=== PATIENT | female | born 1955 | race Hispanic/Latino ===

== ENCOUNTER 2017-05-21 20:24 | Emergency (ER) | payer MEDICARE ==
[2017-05-21] MEDS ORDERED: ONDANSETRON HCL 4 MG/2 ML VIAL ONE (20:49)
[2017-05-21] MEDS ORDERED: SODIUM CHLORIDE 0.9% 1000ML 1,000 ML IV ONE (20:50)
[2017-05-21 21:25] LABS: BASOPHILS % (AUTO) 0.4 % (0.0-5.0); EOSINOPHILS % (AUTO) 0.1 % (0.0-8.0); HEMATOCRIT 35.2 % (36-48); MEAN CORPUSCULAR HEMOGLOBIN 30.3 pg (27.0-33.0); MEAN CORPUSCULAR HGB CONC 34.2 g/dL (32.0-36.0); MEAN CORPUSCULAR VOLUME 88.4 fL (79-99); NEUTROPHILS % (AUTO) 84.5 % (40.0-77.0); PLATELET COUNT (AUTO) 133 K/uL (130-400); RED BLOOD CELL COUNT(AUTO) 3.98 MIL/uL (4.00-5.50); RED CELL DISTRIBUTION WIDTH 12.4 % (11.0-15.5); WHITE BLOOD COUNT (AUTO) 8.3 K/uL (4.8-10.8)
[2017-05-21 21:34] LABS: CARBON DIOXIDE 29 mmol/L (21-32); CHLORIDE 95 mmol/L (101-111); CREATININE 1.2 mg/dL (0.5-1.5); GLOMERULAR FILTR. RATE CALC 48 mL/min (>60); GLUCOSE,RANDOM 178 mg/dL (70-105); POTASSIUM 3.8 mmol/L (3.5-5.1); SODIUM SERUM 132 mmol/L (136-145); UREA NITROGEN, BLOOD 16 mg/dL (7-18)
[2017-05-21 21:36] LABS: INR 1.13 (0.85-1.15); PROTHROMBIN TIME 11.8 SEC (9.6-11.6)
[2017-05-21 21:49] LABS: ALANINE AMINOTRANSFERASE 20 U/L (12-78); ALBUMIN 3.2 g/dL (3.5-5.0); AMYLASE 40 U/L (25-115); ASPARTATE AMINOTRANSFERASE 19 U/L (10-37); BILIRUBIN,TOTAL 1.3 mg/dL (0.2-1.0); CREATINE KINASE MB < 0.5 ng/mL (0.5-3.6); CREATINE KINASE, TOTAL 62 U/L (21-232); LIPASE 83 U/L (114-286); TOTAL PROTEIN, SERUM 7.2 g/dL (6.0-8.3)
[2017-05-21 23:07] LABS: APPEARANCE,URINE Clear (CLEAR); BILIRUBIN,URINE Negative (NEGATIVE); COLOR,URINE Yellow (YELLOW); GLUCOSE, URINE (UA) Negative (NEGATIVE); KETONES,URINE 40 mg/dL (NEGATIVE); LEUKOCYTE ESTERASE ,URINE Moderate (NEGATIVE); NITRATE,URINE Negative (NEGATIVE); OCCULT BLOOD,URINE Negative (NEGATIVE); PH,URINE 7.5 (5.0-8.0); PROTEIN,URINE POS 1+ (NEGATIVE)
[2017-05-21 23:16] LABS: BACTERIA,URINE Few /HPF (None Seen); MUCUS,URINE Moderate LPF (None Seen); RBC,URINE None Seen /HPF (0-1); SQUAMOUS EPITHELIAL CELL,UR Moderate /LPF (0-2)
[2017-05-21 23:17] LABS: AMORPHOUS SEDIMENT,UR Few /LPF (None Seen)
[2017-05-21] MEDS ORDERED: CEFTRIAXONE SODIUM 1 GM ONE (23:30)
== END 2017-05-22 00:08 | disposition home or self-care (01) ==
LOC: EDH 20:24
DX: N39.0 Urinary tract infection, site not specified (principal); E11.9 Type 2 diabetes mellitus without complications; E78.5 Hyperlipidemia, unspecified; R79.1 Abnormal coagulation profile; R11.2 Nausea with vomiting, unspecified; Z79.4 Long term (current) use of insulin; Z90.49 Acquired absence of other specified parts of digestive tract; Z79.899 Other long term (current) drug therapy
CPT/HCPCS: 36415; 71010; 80053; 81001; 82150; 82550; 82553; 83605; 83690; 84484; 85025; 85610; 85730; 87040 ×2; 87088; 87186; 87804 ×2; 93005; 96361; 96374; 96375; 99285; J0696; J2405; J7030

== ENCOUNTER 2017-05-24 16:22 | Emergency (ER) | payer MEDICARE ==
[2017-05-24 16:51] LABS: APPEARANCE,URINE Clear (CLEAR); BILIRUBIN,URINE Negative (NEGATIVE); COLOR,URINE Yellow (YELLOW); GLUCOSE, URINE (UA) >=1000 mg/dL (NEGATIVE); KETONES,URINE Negative (NEGATIVE); LEUKOCYTE ESTERASE ,URINE Negative (NEGATIVE); NITRATE,URINE Negative (NEGATIVE); OCCULT BLOOD,URINE Negative (NEGATIVE); PROTEIN,URINE Negative (NEGATIVE); UROBILINOGEN,URINE 0.2 mg/dL (0.2-1.0)
[2017-05-24 16:54] LABS: BASOPHILS % (AUTO) 0.3 % (0.0-5.0); EOSINOPHILS % (AUTO) 0.2 % (0.0-8.0); LYMPHOCYTES % (AUTO) 12.1 % (21.0-51.0); MEAN CORPUSCULAR HEMOGLOBIN 30.4 pg (27.0-33.0); MEAN CORPUSCULAR HGB CONC 34.9 g/dL (32.0-36.0); NEUTROPHILS % (AUTO) 80.4 % (40.0-77.0); PLATELET COUNT (AUTO) 211 K/uL (130-400); RED BLOOD CELL COUNT(AUTO) 4.03 MIL/uL (4.00-5.50); RED CELL DISTRIBUTION WIDTH 12.4 % (11.0-15.5); WHITE BLOOD COUNT (AUTO) 7.1 K/uL (4.8-10.8)
[2017-05-24 17:06] LABS: CREATININE 1.4 mg/dL (0.5-1.5); POTASSIUM 3.8 mmol/L (3.5-5.1)
[2017-05-24 17:31] LABS: BACTERIA,URINE Rare /HPF (None Seen); RBC,URINE None Seen /HPF (0-1); SQUAMOUS EPITHELIAL CELL,UR 0-2 /LPF (0-2); WBC,URINE 0-1 /HPF (0-1)
[2017-05-24] MEDS ORDERED: SODIUM CHLORIDE 0.9% 1000ML 2,000 ML IV ONE (17:42)
[2017-05-24] MEDS ORDERED: CEFTRIAXONE SODIUM 1 GM ONE (17:43)
[2017-05-24] MEDS ORDERED: INSULIN HUMULIN R 100 UNIT/ML 3ML ONE ×2 (17:44→19:13)
[2017-05-24] MEDS ORDERED: SODIUM CHLORIDE 0.9% 50 ML IV ONE (17:48)
== END 2017-05-24 20:07 | disposition home or self-care (01) ==
LOC: EDH 16:22
DX: E11.65 Type 2 diabetes mellitus with hyperglycemia (principal); E86.0 Dehydration; E78.5 Hyperlipidemia, unspecified; Z94.0 Kidney transplant status; Z79.4 Long term (current) use of insulin
CPT/HCPCS: 36415; 71010; 80048; 81001; 82948 ×2; 84484; 85025; 96361; 96374; 96375; 96376; 99285; J0696; J1815 ×2; J7030

== ENCOUNTER 2017-09-11 18:49 | Emergency (ER) | payer MEDICARE ==
[2017-09-11 19:42] LABS: BASOPHILS % (AUTO) 0.5 % (0.0-5.0); EOSINOPHILS % (AUTO) 1.5 % (0.0-8.0); HEMATOCRIT 38.4 % (36-48); MEAN CORPUSCULAR HEMOGLOBIN 30.1 pg (27.0-33.0); MEAN CORPUSCULAR HGB CONC 34.6 g/dL (32.0-36.0); MEAN CORPUSCULAR VOLUME 87.1 fL (79-99); MONOCYTES % (AUTO) 8.1 % (3.0-13.0); NEUTROPHILS % (AUTO) 71.9 % (40.0-77.0); PLATELET COUNT (AUTO) 181 K/uL (130-400); RED BLOOD CELL COUNT(AUTO) 4.41 MIL/uL (4.00-5.50); RED CELL DISTRIBUTION WIDTH 12.9 % (11.0-15.5); WHITE BLOOD COUNT (AUTO) 11.8 K/uL (4.8-10.8)
[2017-09-11] MEDS ORDERED: SODIUM CHLORIDE 0.9% 1000ML 1,000 ML IV ONE (19:42)
[2017-09-11] MEDS ORDERED: MORPHINE SULFATE 4 MG/1ML SYG ONE (19:42)
[2017-09-11] MEDS ORDERED: ONDANSETRON HCL MDV 20ML 2 MG/ML VIAL ONE (19:42)
[2017-09-11 20:12] LABS: APPEARANCE,URINE Clear (CLEAR); BILIRUBIN,URINE Negative (NEGATIVE); COLOR,URINE Yellow (YELLOW); GLUCOSE, URINE (UA) Negative (NEGATIVE); KETONES,URINE Negative (NEGATIVE); LEUKOCYTE ESTERASE ,URINE Negative (NEGATIVE); NITRATE,URINE Negative (NEGATIVE); OCCULT BLOOD,URINE Negative (NEGATIVE); PROTEIN,URINE Trace (NEGATIVE)
[2017-09-11 20:15] LABS: CREATININE 1.1 mg/dL (0.5-1.5); POTASSIUM 3.9 mmol/L (3.5-5.1)
[2017-09-11 20:20] LABS: ALBUMIN 3.6 g/dL (3.5-5.0); BILIRUBIN,TOTAL 0.7 mg/dL (0.2-1.0); TOTAL PROTEIN, SERUM 7.3 g/dL (6.0-8.3)
[2017-09-11 20:27] LABS: BACTERIA,URINE Rare /HPF (None Seen); RBC,URINE None Seen /HPF (0-1); SQUAMOUS EPITHELIAL CELL,UR 0-2 /HPF (0-2); WBC,URINE 0-1 /HPF (0-1)
[2017-09-11] MEDS ORDERED: METRONIDAZOLE 500 MG TABLET ONE (23:25)
[2017-09-11] MEDS ORDERED: LEVOFLOXACIN 500 MG TABLET ONE (23:26)
== END 2017-09-11 23:39 | disposition home or self-care (01) ==
LOC: EDH 18:49
DX: K57.92 Diverticulitis of intestine, part unspecified, without perforation or abscess without bleeding (principal); E11.9 Type 2 diabetes mellitus without complications; E78.5 Hyperlipidemia, unspecified; Z90.49 Acquired absence of other specified parts of digestive tract; Z90.710 Acquired absence of both cervix and uterus; Z94.0 Kidney transplant status
CPT/HCPCS: 36415; 74176; 80053; 81001; 82550; 83690; 84484; 85025; 93005; 96361; 96374; 96375; 99285; J2270; J7030

== ENCOUNTER 2017-11-02 17:13 | Emergency (ER) | payer MEDICARE | END 2017-11-02 18:25 | disposition home or self-care (01) | LOC: EDH 17:13 | DX: S01.81XA Laceration without foreign body of other part of head, initial encounter (principal); E11.9 Type 2 diabetes mellitus without complications; E78.5 Hyperlipidemia, unspecified; Z79.4 Long term (current) use of insulin; W01.0XXA Fall on same level from slipping, tripping and stumbling without subsequent striking against object, initial encounter; Y93.89 Activity, other specified; Y92.098 Other place in other non-institutional residence as the place of occurrence of the external cause; Y99.8 Other external cause status | CPT/HCPCS: 12011 ==

== ENCOUNTER 2018-07-31 10:18 | Inpatient (IN) | payer MEDICARE | END 2018-08-02 13:30 | disposition home or self-care (01) | LOC: EDH 10:18 → EDHIP 12:45 → 3AH 17:28 | DX: N39.0 Urinary tract infection, site not specified (principal); N17.9 Acute kidney failure, unspecified; N18.9 Chronic kidney disease, unspecified ==

== ENCOUNTER 2018-12-20 12:35 | Inpatient (IN) | payer MEDICARE ==
[~2018-12-20] VITALS: Ht 165.1 cm; Wt 70.7 kg
[~2018-12-20 12:35] MED LIST: ASPI-555 PO; ATOR40TA69 PO; FAMO40TA7 PO; INSU100V12 SQ; LACT10SO9 PO; LEVO500T89 PO; LEVO5TAB13 PO; MYCO500T PO; MYCO500T5 PO; PRED5TAB PO; PROM25TA7 PO; SITA100T12 PO; TACR1CAP10 PO; TACR1CAP18 PO; TRAZ-185 PO; TYL3 PO
[2018-12-20] MEDS ORDERED: SODIUM CHLORIDE 0.9% 1000ML 1,000 ML IV ONE (12:59)
[2018-12-20 13:02] LABS: APPEARANCE,URINE TURBID (CLEAR); BASOPHILS % (AUTO) 0.2 % (0.0-5.0); BILIRUBIN,URINE NEGATIVE (NEGATIVE); COLOR,URINE YELLOW (YELLOW); EOSINOPHILS % (AUTO) 0.2 % (0.0-8.0); GLUCOSE, URINE (UA) NEGATIVE (NEGATIVE); HEMATOCRIT 36.2 % (36-48); KETONES,URINE 40 mg/dL (NEGATIVE); LEUKOCYTE ESTERASE ,URINE LARGE (NEGATIVE); LYMPHOCYTES % (AUTO) 11.1 % (21.0-51.0); MEAN CORPUSCULAR HEMOGLOBIN 30.4 pg (27.0-33.0); MEAN CORPUSCULAR VOLUME 89.4 fL (79-99); MONOCYTES % (AUTO) 11.3 % (3.0-13.0); NEUTROPHILS % (AUTO) 77.2 % (40.0-77.0); NITRATE,URINE POSITIVE (NEGATIVE); OCCULT BLOOD,URINE SMALL (NEGATIVE); PLATELET COUNT (AUTO) 189 K/uL (130-400); PROTEIN,URINE 100 mg/dL (NEGATIVE); RED BLOOD CELL COUNT(AUTO) 4.05 MIL/uL (4.00-5.50); RED CELL DISTRIBUTION WIDTH 12.7 % (11.0-15.5); UROBILINOGEN,URINE 0.2 mg/dL (0.2-1.0); WHITE BLOOD COUNT (AUTO) 11.6 K/uL (4.8-10.8)
[2018-12-20 13:04] LABS: BACTERIA,URINE Many /HPF (None Seen); RBC,URINE 0-1 /HPF (0-1); SQUAMOUS EPITHELIAL CELL,UR Rare /HPF (0-2); WBC,URINE >100 /HPF (0-1)
[2018-12-20 13:13] LABS: CREATININE 1.4 mg/dL (0.5-1.5); POTASSIUM 3.7 mmol/L (3.5-5.1)
[2018-12-20 13:16] LABS: INR 1.02 (0.85-1.15); PARTIAL THROMBOPLASTIN TIME 33.1 SEC (26.3-35.5); PROTHROMBIN TIME 10.7 SEC (9.6-11.6)
[2018-12-20 13:17] LABS: ALBUMIN 3.4 g/dL (3.5-5.0); BILIRUBIN,DIRECT 0.3 mg/dL (0.0-0.3); TOTAL PROTEIN, SERUM 7.6 g/dL (6.0-8.3)
[2018-12-20] MEDS ORDERED: SODIUM CHLORIDE 0.9% 100 ML IV ONE (13:20)
[2018-12-20] MEDS ORDERED: CEFTRIAXONE SODIUM 1 GM ONE (13:20)
[2018-12-20] MEDS ORDERED: ACETAMINOPHEN 325 MG TAB ONE (13:48)
[2018-12-20] MEDS ORDERED: HYDRALAZINE HCL 20 MG/ML VIAL IV PRN (15:45)
[2018-12-20] MEDS ORDERED: ACETAMINOPHEN 325 MG TAB PO PRN ×2 (15:45)
[2018-12-20] MEDS ORDERED: ONDANSETRON HCL 4 MG/2 ML VIAL IV PRN (15:45)
[2018-12-20 16:16] LABS: HEMOGLOBIN A1C 7.4 % (4.0-6.0)
[2018-12-20] MEDS: INSULIN HUMULIN R 100 UNIT/ML 3ML SQ SCH ×2 (16:30→21:00)
[2018-12-20 16:56] VITALS: BP 114/58
[2018-12-20] MEDS: SODIUM CHLORIDE 0.9% 1000ML 1,000 ML IV SCH (17:28)
--- NOTE | 2018-12-20 17:45 | NUR ---
DR ECKERT NOTIFIED OF NEW CONSULT BY PHONE ORDERS RECEIVED FOR LEVOFLOXACIN 500 IV TIME ONE
[2018-12-20] MEDS ORDERED: LEVOFLOXACIN 500 MG/D5W 100 ML 100 ML IV SCH (18:00)
[2018-12-20 20:45] VITALS: BP 115/53
[2018-12-20] MEDS: FAMOTIDINE/PF 20 MG/2 ML VIAL IV SCH (20:54)
[2018-12-20] MEDS: ATORVASTATIN CALCIUM 40 MG TABLET PO SCH (20:55)
[2018-12-20] MEDS: MYCOPHENOLATE MOFETIL 250 MG CAPSULE PO SCH (20:55)
[2018-12-20] MEDS: TACROLIMUS 1 MG CAPSULE PO SCH (20:55)
[2018-12-20] MEDS: TRAZODONE HCL 50 MG TAB PO SCH (20:55)
[2018-12-20] MEDS: ACETAMINOPHEN-CODEINE 300/30MG TAB PO SCH (20:56)
[2018-12-20] MEDS: ZOSYN 3.375GM+NS 50ML 50 ML IV SCH (21:09)
[2018-12-20 23:54] VITALS: BP 110/58
[2018-12-21] MEDS: SODIUM CHLORIDE 0.9% 1000ML 1,000 ML IV SCH ×3 (01:48→20:48)
[2018-12-21 04:33] VITALS: BP 112/55
[2018-12-21] MEDS: ZOSYN 3.375GM+NS 50ML 50 ML IV SCH ×3 (05:33→20:47)
[2018-12-21] MEDS: INSULIN HUMULIN R 100 UNIT/ML 3ML SQ SCH ×4 (05:47→20:58)
[2018-12-21 08:00] VITALS: BP 104/50
[2018-12-21] MEDS ORDERED: PREDNISONE 5 MG TABLET PO SCH (09:00)
[2018-12-21] MEDS: ASPIRIN 81MG TAB.CHEW PO SCH (09:00)
[2018-12-21] MEDS: ACETAMINOPHEN-CODEINE 300/30MG TAB PO SCH ×2 (09:00→14:00)
[2018-12-21] MEDS: TACROLIMUS 1 MG CAPSULE PO SCH ×2 (09:36→20:48)
[2018-12-21] MEDS: FAMOTIDINE/PF 20 MG/2 ML VIAL IV SCH ×2 (09:36→20:48)
[2018-12-21] MEDS: MYCOPHENOLATE MOFETIL 250 MG CAPSULE PO SCH ×2 (09:36→20:48)
[2018-12-21] MEDS: ENOXAPARIN SODIUM 40 MG/0.4 ML SYRINGE SQ SCH (09:36)
[2018-12-21] MEDS: CETIRIZINE HCL 5 MG TABLET PO SCH (09:36)
[2018-12-21 12:00] VITALS: BP 119/61
[2018-12-21] MEDS: LEVOFLOXACIN 500 MG/D5W 100 ML 100 ML IV SCH ×2 (13:00→15:33)
[2018-12-21 16:00] VITALS: BP 132/72
--- NOTE | 2018-12-21 16:50 | NUR ---
D/C PLAN CM spoke to pt regarding d/c planning. Pt is ind. and lives alone. Has provider about 4 hrs/day. States she has wk at home but does not use. Plan to home. CM to f/u. Addendum: 12/21/18 at 1655 by ANTHONY SOLORIO CM Amended: Links added.
[2018-12-21 20:00] VITALS: BP 115/72
[2018-12-21] MEDS: ATORVASTATIN CALCIUM 40 MG TABLET PO SCH (20:48)
[2018-12-21] MEDS: TRAZODONE HCL 50 MG TAB PO SCH (20:49)
[2018-12-21] MEDS ORDERED: ACETAMINOPHEN-CODEINE 300/30MG TAB PO PRN (21:15)
[2018-12-22] VITALS: BP 151/76
[2018-12-22 04:00] VITALS: BP 123/70
[2018-12-22 05:15] LABS: BASOPHILS % (AUTO) 0.3 % (0.0-5.0); EOSINOPHILS % (AUTO) 1.4 % (0.0-8.0); HEMATOCRIT 30.5 % (36-48); LYMPHOCYTES % (AUTO) 26.3 % (21.0-51.0); MEAN CORPUSCULAR HEMOGLOBIN 30.9 pg (27.0-33.0); MEAN CORPUSCULAR HGB CONC 34.3 g/dL (32.0-36.0); MONOCYTES % (AUTO) 8.5 % (3.0-13.0); NEUTROPHILS % (AUTO) 63.5 % (40.0-77.0); PLATELET COUNT (AUTO) 168 K/uL (130-400); RED BLOOD CELL COUNT(AUTO) 3.39 MIL/uL (4.00-5.50); RED CELL DISTRIBUTION WIDTH 12.6 % (11.0-15.5); WHITE BLOOD COUNT (AUTO) 6.3 K/uL (4.8-10.8)
[2018-12-22] MEDS: ZOSYN 3.375GM+NS 50ML 50 ML IV SCH ×2 (05:20→12:51)
[2018-12-22] MEDS: INSULIN HUMULIN R 100 UNIT/ML 3ML SQ SCH ×2 (05:59→11:30)
[2018-12-22 06:11] LABS: CREATININE 1.1 mg/dL (0.5-1.5); CRP QUANTITATIVE 152.2 mg/L (0.00-9.0); POTASSIUM 3.5 mmol/L (3.5-5.1)
[2018-12-22 06:21] LABS: ERYTHROCYTE SEDIMENTATION RATE 36 MM/HR (0-30)
[2018-12-22 08:00] VITALS: BP 125/64
[2018-12-22] MEDS: ASPIRIN 81MG TAB.CHEW PO SCH (08:52)
[2018-12-22] MEDS: CETIRIZINE HCL 5 MG TABLET PO SCH (08:52)
[2018-12-22] MEDS: MYCOPHENOLATE MOFETIL 250 MG CAPSULE PO SCH (08:52)
[2018-12-22] MEDS: TACROLIMUS 1 MG CAPSULE PO SCH (08:52)
[2018-12-22] MEDS: FAMOTIDINE/PF 20 MG/2 ML VIAL IV SCH (08:53)
[2018-12-22] MEDS: ENOXAPARIN SODIUM 40 MG/0.4 ML SYRINGE SQ SCH (08:53)
[2018-12-22] MEDS ORDERED: LEVO500T2 PO (11:27)
[2018-12-22] MEDS: LEVOFLOXACIN 500 MG/D5W 100 ML 100 ML IV SCH (12:42)
--- NOTE | 2018-12-22 16:35 | NUR ---
DISCHARGE INSTRUCTIONS GIVEN . ALL QUESTIONS ANSWERED . INSTRUCTED PATIENT TO HAVE PRESCRIPTION FILLED FOR LEVAQUIN. IV DISCONTINUED WITH INNER CANNULA INTACT.
[2018-12-23] MEDS ORDERED: PREDNISONE 5 MG TABLET PO SCH (09:00)
== END 2018-12-22 15:40 | disposition home or self-care (01) | DRG 698 ==
LOC: EDH 12:35 → EDHIP 15:35 → 3AH 16:34
PROVIDERS: ADMIT Internal Medicine; ATTEND Internal Medicine
DX: T86.13 Kidney transplant infection (principal); A41.9 Sepsis, unspecified organism; N17.9 Acute kidney failure, unspecified; E87.1 Hypo-osmolality and hyponatremia; N12 Tubulo-interstitial nephritis, not specified as acute or chronic; Q61.3 Polycystic kidney, unspecified; Y83.0 Surgical operation with transplant of whole organ as the cause of abnormal reaction of the patient, or of later complication, without mention of misadventure at the time of the procedure; E86.1 Hypovolemia; E11.9 Type 2 diabetes mellitus without complications; E78.00 Pure hypercholesterolemia, unspecified; E78.5 Hyperlipidemia, unspecified; I10 Essential (primary) hypertension; B96.1 Klebsiella pneumoniae [K. pneumoniae] as the cause of diseases classified elsewhere; K57.30 Diverticulosis of large intestine without perforation or abscess without bleeding
CPT/HCPCS: 36415; 74176; 80048; 80076; 81001; 82550; 82948; 83036; 83605; 83690; 84484; 85025; 85610; 85651; 85730; 86140; 87040; 87077; 87088; 87186; 87804; G0378; J0696; J1650; J1815; J1956; J2543; J3490; J7030; J7507; J7512; J7517

== ENCOUNTER 2021-01-17 21:38 | Inpatient (IN) | payer MEDICARE ==
[~2021-01-17] VITALS: Ht 165.1 cm; Wt 69.9 kg
[~2021-01-17 21:38] MED LIST changes: -ASPI-555 PO; +ASPI-556 PO; -FAMO40TA7 PO; -INSU100V12 SQ; -LACT10SO9 PO; +LEVO500T2 PO; -LEVO500T89 PO
[2021-01-17] MEDS ORDERED: ACETAMINOPHEN 500 MG TABLET PO ONE (23:00)
[2021-01-17] MEDS ORDERED: ACETAMINOPHEN 500 MG TABLET ONE (23:20)
[2021-01-17 23:33] LABS: BASOPHILS % (AUTO) 0.1 % (0.0-5.0); EOSINOPHILS % (AUTO) 0.1 % (0.0-8.0); HEMATOCRIT 37.5 % (36-48); LYMPHOCYTES % (AUTO) 6.9 % (21.0-51.0); MEAN CORPUSCULAR HEMOGLOBIN 30.2 pg (27.0-33.0); MEAN CORPUSCULAR HGB CONC 33.9 g/dL (32.0-36.0); MEAN CORPUSCULAR VOLUME 89.3 fL (79-99); MONOCYTES % (AUTO) 9.1 % (3.0-13.0); NEUTROPHILS % (AUTO) 83.7 % (40.0-77.0); PLATELET COUNT (AUTO) 118 K/uL (130-400); RED CELL DISTRIBUTION WIDTH 12.1 % (11.0-15.5); WHITE BLOOD COUNT (AUTO) 6.7 K/uL (4.8-10.8)
[2021-01-17 23:43] VITALS: BP 131/67
[2021-01-17 23:43] LABS: INR 1.09 (0.85-1.15); PROTHROMBIN TIME 11.8 SEC (9.6-11.6)
[2021-01-17 23:44] LABS: PARTIAL THROMBOPLASTIN TIME 27.2 SEC (26.3-35.5)
[2021-01-17 23:49] LABS: APPEARANCE,URINE Clear (CLEAR); BILIRUBIN,URINE Negative (NEGATIVE); COLOR,URINE Yellow (YELLOW); GLUCOSE, URINE (UA) 500 mg/dL (NEGATIVE); KETONES,URINE 40 mg/dL (NEGATIVE); LEUKOCYTE ESTERASE ,URINE Moderate (NEGATIVE); NITRATE,URINE Negative (NEGATIVE); OCCULT BLOOD,URINE Trace (NEGATIVE); PH,URINE 6.5 (5.0-8.0); PROTEIN,URINE POS 2+ mg/dL (NEGATIVE)
[2021-01-17 23:55] LABS: B-TYPE NATRIURETIC PEPTIDE 27 pg/mL (0-100)
[2021-01-17 23:58] LABS: BACTERIA,URINE Few /HPF (None Seen); SQUAMOUS EPITHELIAL CELL,UR 0-2 /HPF (0-2)
[2021-01-17 23:59] LABS: CREATININE 1.2 mg/dL (0.5-1.5); POTASSIUM 3.9 mmol/L (3.5-5.1)
[2021-01-18] VITALS (8 sets, daily range): BP systolic 104–155; BP diastolic 53–76
[2021-01-18] MEDS ORDERED: ZOSYN 3.375GM +NS 50ML IV ONE
[2021-01-18] MEDS ORDERED: PIP/TAZ ZOSYN 3.375G 3.375 GM VIAL IVPB ONE
[2021-01-18 00:04] LABS: ALBUMIN 3.5 g/dL (3.5-5.0); TOTAL PROTEIN, SERUM 7.1 g/dL (6.0-8.3)
[2021-01-18] MEDS ORDERED: 0.9%NACL 50ML 50 ML IV ONE (01:35)
[2021-01-18] MEDS ORDERED: ZOSYN 3.375GM+NS 50ML 50 ML IV ONE (01:35)
[2021-01-18] MEDS ORDERED: ONDANSETRON 4MG INJ IV PRN (02:00)
[2021-01-18] MEDS ORDERED: GLUCAGON 1MG KIT 1 MG ML IM PRN (02:00)
[2021-01-18] MEDS ORDERED: ACETAMINOPHEN 325 MG TAB PO PRN (02:00)
[2021-01-18] MEDS ORDERED: DEXTROSE 50%-WATER 50 ML DISP.SYRIN IV PRN (02:00)
[2021-01-18] MEDS ORDERED: NITROGLYCERIN 0.4 MG SL TAB SL PRN (02:00)
[2021-01-18 02:12] LABS: HEMOGLOBIN A1C 7.8 % (4.0-6.0)
[2021-01-18] MEDS: LEVOFLOXACIN 500 MG/D5W 100 ML 100 ML IV SCH (03:38)
[2021-01-18] MEDS ORDERED: ZOSYN 3.375GM+NS 50ML 50 ML IV SCH (05:00)
[2021-01-18] MEDS: INSULIN HUMULIN R 100 UNIT/ML 3ML SQ SCH ×4 (08:05→21:39)
[2021-01-18] MEDS: FAMOTIDINE 20MG TAB PO SCH ×2 (09:58→21:21)
[2021-01-18 15:24] LABS: APPEARANCE,URINE Clear (CLEAR); BILIRUBIN,URINE Negative (NEGATIVE); COLOR,URINE Yellow (YELLOW); GLUCOSE, URINE (UA) TRACE mg/dL (NEGATIVE); KETONES,URINE Trace mg/dL (NEGATIVE); LEUKOCYTE ESTERASE ,URINE Negative (NEGATIVE); NITRATE,URINE Negative (NEGATIVE); OCCULT BLOOD,URINE Negative (NEGATIVE); PROTEIN,URINE POS 2+ mg/dL (NEGATIVE)
[2021-01-18] MEDS ORDERED: TACR1CAP10 PO (15:35)
[2021-01-18] MEDS ORDERED: MYCO500V2 IV (15:37)
[2021-01-18] MEDS ORDERED: ATOR40TA71 PO (15:38)
[2021-01-18] MEDS ORDERED: TRAZ-185 PO (15:39)
[2021-01-18] MEDS ORDERED: INSU100V12 SQ (15:40)
[2021-01-18 15:51] LABS: BACTERIA,URINE Few /HPF (None Seen); RBC,URINE 0-1 /HPF (0-1); WBC,URINE 0-1 /HPF (0-1)
[2021-01-18 15:52] LABS: AMORPHOUS SEDIMENT,UR Rare /LPF (None Seen); MUCUS,URINE Rare LPF (None Seen); SQUAMOUS EPITHELIAL CELL,UR Rare /HPF (0-2)
[2021-01-18] MEDS: ACETAMINOPHEN 325 MG TAB PO PRN (16:01)
[2021-01-18] MEDS: MYCOPHENOLATE MOFETIL 250 MG CAPSULE PO SCH (23:00)
[2021-01-18] MEDS: TACROLIMUS 1 MG CAPSULE PO SCH (23:00)
[2021-01-19] MEDS: LEVOFLOXACIN 500 MG/D5W 100 ML 100 ML IV SCH (00:51)
[2021-01-19] MEDS ORDERED: AEC81 PO (01:21)
[2021-01-19] MEDS ORDERED: CYCL10TA7 PO (01:21)
[2021-01-19] MEDS ORDERED: MELA10TA PO (01:21)
[2021-01-19] MEDS ORDERED: DOCU-116 PO (01:21)
[2021-01-19] MEDS ORDERED: CHOL200016 PO (01:21)
[2021-01-19] MEDS ORDERED: FAMO40TA75 PO (01:21)
[2021-01-19] MEDS: ACETAMINOPHEN 325 MG TAB PO PRN ×2 (02:52→20:49)
[2021-01-19 03:47] VITALS: BP 120/52
[2021-01-19 05:44] LABS: BASOPHILS % (AUTO) 0.4 % (0.0-5.0); EOSINOPHILS % (AUTO) 1.2 % (0.0-8.0); HEMATOCRIT 34.7 % (36-48); LYMPHOCYTES % (AUTO) 23.6 % (21.0-51.0); MEAN CORPUSCULAR HEMOGLOBIN 29.9 pg (27.0-33.0); MEAN CORPUSCULAR VOLUME 88.1 fL (79-99); MONOCYTES % (AUTO) 15.1 % (3.0-13.0); NEUTROPHILS % (AUTO) 59.5 % (40.0-77.0); PLATELET COUNT (AUTO) 128 K/uL (130-400); RED BLOOD CELL COUNT(AUTO) 3.94 MIL/uL (4.00-5.50); RED CELL DISTRIBUTION WIDTH 11.9 % (11.0-15.5); WHITE BLOOD COUNT (AUTO) 5.7 K/uL (4.8-10.8)
[2021-01-19 06:12] LABS: BILIRUBIN,TOTAL 0.6 mg/dL (0.2-1.0); CREATININE 1.1 mg/dL (0.5-1.5); MAGNESIUM 1.7 mg/dL (1.80-2.40); POTASSIUM 3.5 mmol/L (3.5-5.1); TOTAL PROTEIN, SERUM 6.6 g/dL (6.0-8.3)
[2021-01-19] MEDS: INSULIN HUMULIN R 100 UNIT/ML 3ML SQ SCH ×4 (07:30→20:45)
[2021-01-19 07:53] VITALS: BP 116/59
[2021-01-19] MEDS: FAMOTIDINE 20MG TAB PO SCH ×2 (08:42→20:37)
[2021-01-19] MEDS: MYCOPHENOLATE MOFETIL 250 MG CAPSULE PO SCH ×2 (08:42→20:37)
[2021-01-19] MEDS: TACROLIMUS 1 MG CAPSULE PO SCH ×2 (08:43→20:37)
[2021-01-19 11:03] VITALS: BP 108/60
[2021-01-19 16:52] VITALS: BP 119/59
[2021-01-19 20:21] VITALS: BP 135/72
[2021-01-19] MEDS: ATORVASTATIN 40 MG TABLET PO SCH (20:37)
[2021-01-19] MEDS: DOCUSATE SODIUM 100 MG CAP PO SCH (20:37)
[2021-01-19] MEDS ORDERED: MYCOPHENOLATE MOFETIL 500 MG PO SCH (21:00)
[2021-01-19 23:54] VITALS: BP 128/67
[2021-01-20] MEDS: LEVOFLOXACIN 500 MG/D5W 100 ML 100 ML IV SCH (01:43)
[2021-01-20 04:00] VITALS: BP 127/64
[2021-01-20] MEDS: INSULIN HUMULIN R 100 UNIT/ML 3ML SQ SCH ×4 (06:32→21:33)
[2021-01-20 07:21] VITALS: BP 137/73
[2021-01-20] MEDS: ASPIRIN 81 MG EC TAB PO SCH (08:44)
[2021-01-20] MEDS: MYCOPHENOLATE MOFETIL 250 MG CAPSULE PO SCH ×2 (08:44→21:31)
[2021-01-20] MEDS: TACROLIMUS 1 MG CAPSULE PO SCH ×2 (08:44→21:31)
[2021-01-20] MEDS: PREDNISONE 5 MG TABLET PO SCH (08:44)
[2021-01-20] MEDS: FAMOTIDINE 20MG TAB PO SCH ×2 (08:44→21:31)
[2021-01-20] MEDS: NON-FORMULARY MEDICATION 1 EACH (Cholecalciferol (Vitamin D3) (Vitamin D3) 50 MCG) PO SCH (09:00)
[2021-01-20 11:38] VITALS: BP 123/60
[2021-01-20 15:40] VITALS: BP_SYST 146; BP_SYST 147; BP_DIAS 70; BP_DIAS 71
[2021-01-20 19:59] VITALS: BP 131/61
[2021-01-20] MEDS: ATORVASTATIN 40 MG TABLET PO SCH (21:31)
[2021-01-20] MEDS: DOCUSATE SODIUM 100 MG CAP PO SCH (21:31)
[2021-01-20 23:34] VITALS: BP 133/69
[2021-01-21] MEDS: LEVOFLOXACIN 500 MG/D5W 100 ML 100 ML IV SCH (02:20)
[2021-01-21 03:43] VITALS: BP 134/66
[2021-01-21] MEDS: INSULIN HUMULIN R 100 UNIT/ML 3ML SQ SCH ×3 (05:47→16:30)
[2021-01-21 07:46] VITALS: BP 126/67
[2021-01-21 07:58] LABS: ALBUMIN 3.3 g/dL (3.5-5.0); BILIRUBIN,TOTAL 0.4 mg/dL (0.2-1.0); CREATININE 1.1 mg/dL (0.5-1.5); POTASSIUM 4.1 mmol/L (3.5-5.1); TOTAL PROTEIN, SERUM 7.2 g/dL (6.0-8.3)
[2021-01-21] MEDS: NON-FORMULARY MEDICATION 1 EACH (Cholecalciferol (Vitamin D3) (Vitamin D3) 50 MCG) PO SCH (09:00)
[2021-01-21] MEDS: FAMOTIDINE 20MG TAB PO SCH (09:25)
[2021-01-21] MEDS: MYCOPHENOLATE MOFETIL 250 MG CAPSULE PO SCH (09:26)
[2021-01-21] MEDS: ASPIRIN 81 MG EC TAB PO SCH (09:29)
[2021-01-21] MEDS: TACROLIMUS 1 MG CAPSULE PO SCH (09:29)
[2021-01-21] MEDS: PREDNISONE 5 MG TABLET PO SCH (09:29)
[2021-01-21 10:45] VITALS: BP 134/68
[2021-01-21] MEDS ORDERED: LEVO750T46 PO (15:02)
[2021-01-21 16:22] VITALS: BP 168/84
== END 2021-01-21 17:45 | disposition home or self-care (01) | DRG 872 ==
LOC: EDH 21:38 → EDHIP 01-18 01:40 → 3CH 01-18 15:34
PROVIDERS: ADMIT Internal Medicine; ATTEND Internal Medicine
DX: A41.9 Sepsis, unspecified organism (principal); E87.1 Hypo-osmolality and hyponatremia; D84.9 Immunodeficiency, unspecified; I12.0 Hypertensive chronic kidney disease with stage 5 chronic kidney disease or end stage renal disease; N12 Tubulo-interstitial nephritis, not specified as acute or chronic; N30.00 Acute cystitis without hematuria; E46 Unspecified protein-calorie malnutrition; Z94.0 Kidney transplant status; E78.5 Hyperlipidemia, unspecified; G89.29 Other chronic pain; E11.22 Type 2 diabetes mellitus with diabetic chronic kidney disease; E11.65 Type 2 diabetes mellitus with hyperglycemia; Z83.3 Family history of diabetes mellitus; Z68.25 Body mass index [BMI] 25.0-25.9, adult; Z20.822 Contact with and (suspected) exposure to COVID-19; Z87.898 Personal history of other specified conditions
CPT/HCPCS: 36415; 71045; 80053; 81001; 82550; 82948; 83036; 83605; 83735; 83880; 84100; 84145; 84484; 85025; 85610; 85730; 87040; 87088; 87635; 87804; 93005; C9803; G0378; J1815; J1956; J2405; J2543; J7507; J7512; J7517

== ENCOUNTER 2021-06-23 11:53 | Emergency (ER) | payer MEDICARE ==
[~2021-06-23] VITALS: Ht 165.1 cm; Wt 70.3 kg
[~2021-06-23 11:53] MED LIST changes: +AEC81 PO; -ASPI-556 PO; -ATOR40TA69 PO; +ATOR40TA71 PO; +CHOL200016 PO; +CYCL-309 PO; +DOCU-116 PO; +FAMO40TA75 PO; +INSU100V12 SQ; -LEVO500T2 PO; -LEVO5TAB13 PO; +LEVO750T46 PO; +MELA10TA PO; -MYCO500T5 PO; -PROM25TA7 PO; -TACR1CAP10 PO
[2021-06-23] MEDS ORDERED: MECLIZINE HCL 25 MG TABLET PO SCH (12:30)
[2021-06-23 12:41] LABS: APPEARANCE,URINE Clear (CLEAR); BILIRUBIN,URINE Negative (NEGATIVE); COLOR,URINE Dark Yellow (YELLOW); GLUCOSE, URINE (UA) Negative (NEGATIVE); KETONES,URINE Negative (NEGATIVE); LEUKOCYTE ESTERASE ,URINE Trace (NEGATIVE); NITRATE,URINE Negative (NEGATIVE); OCCULT BLOOD,URINE Negative (NEGATIVE); PROTEIN,URINE POS 1+ mg/dL (NEGATIVE)
[2021-06-23 12:45] LABS: BACTERIA,URINE Rare /HPF (None Seen); RBC,URINE 0-1 /HPF (0-1); SQUAMOUS EPITHELIAL CELL,UR Rare /HPF (0-2); WBC,URINE 0-1 /HPF (0-1)
[2021-06-23] MEDS ORDERED: ACETAMINOPHEN 500 MG TABLET PO SCH (13:00)
[2021-06-23 13:10] LABS: INFLUENZA TYPE A NEGATIVE FOR TYPE A (NEG); INFLUENZA TYPE B NEGATIVE FOR TYPE B (NEG)
[2021-06-23] MEDS ORDERED: 0.9%NACL 1000ML 1,000 ML IV ONE (13:30)
[2021-06-23 13:41] LABS: BASOPHILS % (AUTO) 0.3 % (0.0-5.0); EOSINOPHILS % (AUTO) 0.1 % (0.0-8.0); HEMATOCRIT 40.2 % (36-48); LYMPHOCYTES % (AUTO) 3.6 % (21.0-51.0); MEAN CORPUSCULAR HEMOGLOBIN 30.2 pg (27.0-33.0); MEAN CORPUSCULAR HGB CONC 33.8 g/dL (32.0-36.0); MEAN CORPUSCULAR VOLUME 89.3 fL (79-99); MONOCYTES % (AUTO) 4.3 % (3.0-13.0); NEUTROPHILS % (AUTO) 91.2 % (40.0-77.0); PLATELET COUNT (AUTO) 166 K/uL (130-400); RED CELL DISTRIBUTION WIDTH 12.2 % (11.0-15.5); WHITE BLOOD COUNT (AUTO) 10.9 K/uL (4.8-10.8)
[2021-06-23 13:47] LABS: CREATININE 1.2 mg/dL (0.5-1.5); POTASSIUM 3.2 mmol/L (3.5-5.1)
[2021-06-23 13:54] LABS: BILIRUBIN,TOTAL 0.7 mg/dL (0.2-1.0); TOTAL PROTEIN, SERUM 7.8 g/dL (6.0-8.3)
[2021-06-23] MEDS ORDERED: POTASSIUM BICARB/CIT AC 25 MEQ TABLET.EFF PO ONE (14:30)
[2021-06-23] MEDS ORDERED: MECL-226 PO (14:46)
[2021-06-23 15:09] VITALS: BP 96/59
[2021-06-24] MEDS ORDERED: DICY20TA2 PO (14:39)
[2021-06-24] MEDS ORDERED: ONDA4TAB10 PO (14:39)
[2021-06-24] MEDS ORDERED: METR375C2 PO (14:39)
== END 2021-06-23 15:33 | disposition home or self-care (01) ==
LOC: EDH 11:53
DX: B34.9 Viral infection, unspecified (principal); I95.1 Orthostatic hypotension; Z20.822 Contact with and (suspected) exposure to COVID-19; E11.9 Type 2 diabetes mellitus without complications; I10 Essential (primary) hypertension; Z79.4 Long term (current) use of insulin; Z79.52 Long term (current) use of systemic steroids; Z79.82 Long term (current) use of aspirin; Z79.899 Other long term (current) drug therapy; Z90.49 Acquired absence of other specified parts of digestive tract
CPT/HCPCS: 36415; 80053; 81001; 85025; 87635; 87804 ×2; 96360; 96361; 99284; C9803; J7030

== ENCOUNTER 2021-06-24 14:14 | Emergency (ER) | payer MEDICARE ==
[~2021-06-24] VITALS: Ht 165.1 cm; Wt 70.3 kg
[~2021-06-24 14:14] MED LIST changes: +MECL-226 PO
[2021-06-24] MEDS ORDERED: DICYCLOMINE 20MG (10MG/ML) AMP IM SCH (14:31)
[2021-06-24] MEDS ORDERED: METR375C2 PO (14:39)
[2021-06-24] MEDS ORDERED: ONDA4TAB10 PO (14:39)
[2021-06-24] MEDS ORDERED: DICY20TA2 PO (14:39)
[2021-06-24] MEDS ORDERED: ONDANSETRON ODT 4MG TAB SL SCH (15:00)
[2021-06-24] MEDS ORDERED: LEVOFLOXACIN 500 MG TABLET PO SCH (15:00)
[2021-06-24] MEDS ORDERED: METRONIDAZOLE 500 MG TABLET PO SCH (15:00)
[2021-06-24 15:01] LABS: BASOPHILS % (AUTO) 0.2 % (0.0-5.0); EOSINOPHILS % (AUTO) 2.7 % (0.0-8.0); LYMPHOCYTES % (AUTO) 3.4 % (21.0-51.0); MEAN CORPUSCULAR HEMOGLOBIN 30.7 pg (27.0-33.0); MEAN CORPUSCULAR HGB CONC 34.4 g/dL (32.0-36.0); MEAN CORPUSCULAR VOLUME 89.1 fL (79-99); MONOCYTES % (AUTO) 4.7 % (3.0-13.0); NEUTROPHILS % (AUTO) 88.4 % (40.0-77.0); PLATELET COUNT (AUTO) 120 K/uL (130-400); RED BLOOD CELL COUNT(AUTO) 4.04 MIL/uL (4.00-5.50); RED CELL DISTRIBUTION WIDTH 12.4 % (11.0-15.5)
[2021-06-24 15:08] LABS: CREATININE 1.5 mg/dL (0.5-1.5); POTASSIUM 3.8 mmol/L (3.5-5.1)
[2021-06-24 15:12] LABS: ALBUMIN 3.2 g/dL (3.5-5.0); BILIRUBIN,TOTAL 1.6 mg/dL (0.2-1.0); TOTAL PROTEIN, SERUM 6.9 g/dL (6.0-8.3)
[2021-06-24 15:47] VITALS: BP 106/56
== END 2021-06-24 16:08 | disposition home or self-care (01) ==
LOC: EDH 14:14
DX: K52.9 Noninfective gastroenteritis and colitis, unspecified (principal); E11.9 Type 2 diabetes mellitus without complications; I10 Essential (primary) hypertension; Z79.4 Long term (current) use of insulin; Z79.52 Long term (current) use of systemic steroids; Z79.82 Long term (current) use of aspirin; Z79.899 Other long term (current) drug therapy; Z90.49 Acquired absence of other specified parts of digestive tract
CPT/HCPCS: 36415; 80053; 85025; 96372; 99284; J0500

== ENCOUNTER 2021-10-22 15:47 | Emergency (ER) | payer MEDICARE ==
[~2021-10-22] VITALS: Ht 165.1 cm; Wt 64.4 kg
[~2021-10-22 15:47] MED LIST changes: -CHOL200016 PO; +CHOL200052 PO; +DICY20TA2 PO; +METR375C2 PO; +ONDA4TAB10 PO
[2021-10-22] MEDS ORDERED: IBUPROFEN 600 MG TABLET PO ONE (17:00)
[2021-10-22] MEDS ORDERED: ACET-66 PO (17:37)
[2021-10-22 17:50] VITALS: BP 136/86
== END 2021-10-22 17:52 | disposition home or self-care (01) ==
LOC: EDH 15:47
DX: S52.121A Displaced fracture of head of right radius, initial encounter for closed fracture (principal); M79.602 Pain in left arm; I10 Essential (primary) hypertension; E11.9 Type 2 diabetes mellitus without complications; E78.5 Hyperlipidemia, unspecified; Z79.899 Other long term (current) drug therapy; Z79.4 Long term (current) use of insulin; Z79.52 Long term (current) use of systemic steroids; Z79.82 Long term (current) use of aspirin; Z90.49 Acquired absence of other specified parts of digestive tract; Z94.0 Kidney transplant status; W01.0XXA Fall on same level from slipping, tripping and stumbling without subsequent striking against object, initial encounter; Y93.89 Activity, other specified; Y92.89 Other specified places as the place of occurrence of the external cause; Y99.8 Other external cause status
CPT/HCPCS: 29105; 73060; 73080; 73090

== ENCOUNTER 2021-10-25 16:00 | Inpatient (IN) | payer MEDICARE ==
[~2021-10-25] VITALS: Ht 165.1 cm; Wt 65.1 kg
[~2021-10-25 16:00] MED LIST changes: +ACET-66 PO
[2021-10-25] MEDS ORDERED: 0.9%NACL 1000ML 1,000 ML IV SCH (16:30)
[2021-10-25] MEDS ORDERED: PROMETHAZINE HCL 25 MG/ML 1ML AMPULE IM ONE (16:30)
[2021-10-25 16:51] LABS: BASOPHILS % (AUTO) 0.1 % (0.0-5.0); LYMPHOCYTES % (AUTO) 3.6 % (21.0-51.0); MEAN CORPUSCULAR HEMOGLOBIN 29.1 pg (27.0-33.0); MEAN CORPUSCULAR HGB CONC 33.3 g/dL (32.0-36.0); MEAN CORPUSCULAR VOLUME 87.4 fL (79-99); MONOCYTES % (AUTO) 6.6 % (3.0-13.0); NEUTROPHILS % (AUTO) 89.3 % (40.0-77.0); PLATELET COUNT (AUTO) 202 K/uL (130-400); RED BLOOD CELL COUNT(AUTO) 4.46 MIL/uL (4.00-5.50); RED CELL DISTRIBUTION WIDTH 12.4 % (11.0-15.5); WHITE BLOOD COUNT (AUTO) 14.6 K/uL (4.8-10.8)
[2021-10-25 17:02] LABS: APPEARANCE,URINE Cloudy (CLEAR); BILIRUBIN,URINE Negative (NEGATIVE); COLOR,URINE Yellow (YELLOW); GLUCOSE, URINE (UA) 250 mg/dL (NEGATIVE); KETONES,URINE >=80 mg/dL (NEGATIVE); LEUKOCYTE ESTERASE ,URINE Moderate (NEGATIVE); NITRATE,URINE Negative (NEGATIVE); OCCULT BLOOD,URINE Trace (NEGATIVE); PH,URINE 5.5 (5.0-8.0); PROTEIN,URINE POS 2+ mg/dL (NEGATIVE); UROBILINOGEN,URINE 0.2 mg/dL (0.2-1.0)
[2021-10-25 17:09] LABS: ALBUMIN 3.2 g/dL (3.5-5.0); BILIRUBIN,TOTAL 1.2 mg/dL (0.2-1.0); POTASSIUM 4.3 mmol/L (3.5-5.1); TOTAL PROTEIN, SERUM 7.7 g/dL (6.0-8.3)
[2021-10-25] MEDS ORDERED: CEFTRIAXONE 1G VIAL IVP ONE ×2 (17:30→18:00)
[2021-10-25 17:32] LABS: BACTERIA,URINE Many /HPF (None Seen); RBC,URINE 0-1 /HPF (0-1)
[2021-10-25 17:43] LABS: CREATININE 1.6 mg/dL (0.5-1.5)
[2021-10-25] MEDS ORDERED: INSULIN HUMULIN R 100 UNIT/ML 3ML IV ONE (18:00)
[2021-10-25] MEDS ORDERED: LORAZEPAM 2 MG/ML 1 ML VIAL IVP ONE (18:30)
[2021-10-25] MEDS ORDERED: CEFTRIAXONE 1G VIAL IV SCH (19:00)
[2021-10-25] MEDS ORDERED: ONDANSETRON 4MG INJ IV PRN (19:00)
[2021-10-25] MEDS ORDERED: ACETAMINOPHEN 325 MG TAB PO PRN ×2 (19:00)
[2021-10-25] MEDS ORDERED: MORPHINE 2 MG SYG IV PRN (19:00)
[2021-10-25] MEDS ORDERED: AMLO2.5T4 PO (20:41)
[2021-10-25] MEDS: 0.9%NACL 1000ML 1,000 ML IV SCH (20:54)
[2021-10-25] MEDS: FAMOTIDINE 20MG VIAL IV SCH (21:00)
[2021-10-25 23:30] VITALS: BP 142/51
[2021-10-26] VITALS (7 sets, daily range): BP systolic 116–141; BP diastolic 55–78
[2021-10-26 05:17] LABS: BASOPHILS % (AUTO) 0.2 % (0.0-5.0); EOSINOPHILS % (AUTO) 0.4 % (0.0-8.0); LYMPHOCYTES % (AUTO) 10.8 % (21.0-51.0); MEAN CORPUSCULAR HGB CONC 32.2 g/dL (32.0-36.0); MEAN CORPUSCULAR VOLUME 90.1 fL (79-99); MONOCYTES % (AUTO) 8.4 % (3.0-13.0); NEUTROPHILS % (AUTO) 79.8 % (40.0-77.0); PLATELET COUNT (AUTO) 129 K/uL (130-400); RED BLOOD CELL COUNT(AUTO) 3.55 MIL/uL (4.00-5.50); RED CELL DISTRIBUTION WIDTH 12.4 % (11.0-15.5); WHITE BLOOD COUNT (AUTO) 8.4 K/uL (4.8-10.8)
[2021-10-26 05:38] LABS: ALBUMIN 2.5 g/dL (3.5-5.0); BILIRUBIN,TOTAL 0.5 mg/dL (0.2-1.0); CREATININE 1.1 mg/dL (0.5-1.5); POTASSIUM 3.8 mmol/L (3.5-5.1); TOTAL PROTEIN, SERUM 6.2 g/dL (6.0-8.3)
[2021-10-26] MEDS: INSULIN HUMULIN R 100 UNIT/ML 3ML SQ SCH ×2 (06:39→11:30)
[2021-10-26 06:59] LABS: ERYTHROCYTE SEDIMENTATION RATE 40 MM/HR (0-30)
[2021-10-26 07:13] LABS: HEMOGLOBIN A1C 9.1 % (4.0-6.0)
[2021-10-26] MEDS: 0.9%NACL 1000ML 1,000 ML IV SCH ×3 (07:43→21:19)
[2021-10-26] MEDS: INSULIN LISPRO 100 UNIT/ML 3ML SQ SCH ×6 (08:00→21:11)
[2021-10-26] MEDS: FAMOTIDINE 20MG VIAL IV SCH (09:00)
[2021-10-26] MEDS: TRAZODONE HCL 50 MG TAB PO SCH (09:00)
[2021-10-26] MEDS ORDERED: ZOSYN 3.375GM +NS 50ML IV SCH (10:00)
[2021-10-26] MEDS: TACROLIMUS 1 MG CAPSULE PO SCH ×2 (10:16→21:08)
[2021-10-26] MEDS: MYCOPHENOLATE MOFETIL 250 MG CAPSULE PO SCH ×2 (10:16→21:09)
[2021-10-26] MEDS: AMLODIPINE 2.5 MG TAB PO SCH (10:17)
[2021-10-26] MEDS: PREDNISONE 5 MG TABLET PO SCH (10:17)
[2021-10-26] MEDS ORDERED: PRED5TAB2 PO (11:13)
[2021-10-26] MEDS ORDERED: CHOL200074 PO (11:13)
[2021-10-26] MEDS ORDERED: BISA5TAB12 PO (11:13)
[2021-10-26] MEDS ORDERED: SITA100T12 PO (11:13)
[2021-10-26] MEDS ORDERED: PSYL0.4C2 PO (11:13)
[2021-10-26] MEDS: CEFTRIAXONE 1G VIAL IVP SCH (15:58)
[2021-10-26] MEDS ORDERED: INSULIN GLARGINE 100 UNITS/ML 10 ML VIAL SQ SCH (21:00)
[2021-10-27 04:00] VITALS: BP 161/85
[2021-10-27 05:03] LABS: BASOPHILS % (AUTO) 0.1 % (0.0-5.0); EOSINOPHILS % (AUTO) 1.3 % (0.0-8.0); HEMATOCRIT 30.5 % (36-48); LYMPHOCYTES % (AUTO) 14.1 % (21.0-51.0); MEAN CORPUSCULAR HEMOGLOBIN 28.5 pg (27.0-33.0); MEAN CORPUSCULAR HGB CONC 32.8 g/dL (32.0-36.0); MEAN CORPUSCULAR VOLUME 86.9 fL (79-99); PLATELET COUNT (AUTO) 164 K/uL (130-400); RED BLOOD CELL COUNT(AUTO) 3.51 MIL/uL (4.00-5.50); RED CELL DISTRIBUTION WIDTH 12.5 % (11.0-15.5); WHITE BLOOD COUNT (AUTO) 9.6 K/uL (4.8-10.8)
[2021-10-27 05:14] LABS: CREATININE 0.9 mg/dL (0.5-1.5); POTASSIUM 3.6 mmol/L (3.5-5.1)
[2021-10-27] MEDS: INSULIN LISPRO 100 UNIT/ML 3ML SQ SCH ×6 (06:31→17:11)
[2021-10-27 08:00] VITALS: BP 151/59
[2021-10-27] MEDS: FAMOTIDINE 20MG VIAL IV SCH (09:00)
[2021-10-27] MEDS ORDERED: ***HM*** (Cholecalciferol (Vitamin D3) (Vitamin D3) 50 MCG) PO SCH (09:00)
[2021-10-27] MEDS: TRAZODONE HCL 50 MG TAB PO SCH (09:00)
[2021-10-27] MEDS: MYCOPHENOLATE MOFETIL 250 MG CAPSULE PO SCH (10:59)
[2021-10-27] MEDS: AMLODIPINE 2.5 MG TAB PO SCH (10:59)
[2021-10-27] MEDS: PREDNISONE 5 MG TABLET PO SCH (10:59)
[2021-10-27] MEDS: TACROLIMUS 1 MG CAPSULE PO SCH (10:59)
[2021-10-27] MEDS: 0.9%NACL 1000ML 1,000 ML IV SCH (11:00)
[2021-10-27 12:00] VITALS: BP 160/78
[2021-10-27 15:00] VITALS: BP 167/65
[2021-10-27] MEDS ORDERED: CEPH500T PO (15:27)
[2021-10-27] MEDS: CEFTRIAXONE 1G VIAL IVP SCH (15:35)
== END 2021-10-27 19:05 | disposition home or self-care (01) | DRG 872 ==
LOC: EDH 16:00 → OBSVTOIN 18:45 → EDHIP 18:45 → INTOOBSV 18:45 → 3CH 23:29
PROVIDERS: ADMIT Internal Medicine; ATTEND Internal Medicine
DX: A41.9 Sepsis, unspecified organism (principal); N39.0 Urinary tract infection, site not specified; E87.1 Hypo-osmolality and hyponatremia; N17.9 Acute kidney failure, unspecified; T86.19 Other complication of kidney transplant; E11.65 Type 2 diabetes mellitus with hyperglycemia; Z20.822 Contact with and (suspected) exposure to COVID-19; Z87.442 Personal history of urinary calculi; Z90.49 Acquired absence of other specified parts of digestive tract; E11.22 Type 2 diabetes mellitus with diabetic chronic kidney disease; E78.5 Hyperlipidemia, unspecified; Y83.0 Surgical operation with transplant of whole organ as the cause of abnormal reaction of the patient, or of later complication, without mention of misadventure at the time of the procedure; N18.30 Chronic kidney disease, stage 3 unspecified; G89.29 Other chronic pain; M54.9 Dorsalgia, unspecified; B96.1 Klebsiella pneumoniae [K. pneumoniae] as the cause of diseases classified elsewhere; E86.1 Hypovolemia
CPT/HCPCS: 36415; 74176; 76705; 80048; 80053; 81001; 82948; 83036; 83690; 84145; 84484; 85025; 85651; 87077; 87088; 87186; 87324; 87635; 87804; C9803; G0378; J0696; J1815; J2060; J2405; J2543; J2550; J7030; J7507; J7512; J7517

== ENCOUNTER 2021-11-16 17:25 | Inpatient (IN) | payer MEDICARE ==
[~2021-11-16] VITALS: Ht 165.1 cm; Wt 66.4 kg
[~2021-11-16 17:25] MED LIST changes: -ACET-66 PO; -AEC81 PO; +AMLO2.5T4 PO; +BISA5TAB12 PO; +CEPH500T PO; +CHOL200074 PO; -CYCL-309 PO; -DICY20TA2 PO; -DOCU-116 PO; -FAMO40TA75 PO; -INSU100V12 SQ; -LEVO750T46 PO; -MECL-226 PO; -MELA10TA PO; -METR375C2 PO; -ONDA4TAB10 PO; -PRED5TAB PO; +PRED5TAB2 PO; +PSYL0.4C2 PO; -TYL3 PO
[2021-11-16 18:01] LABS: BASOPHILS % (AUTO) 0.1 % (0.0-5.0); HEMATOCRIT 34.6 % (36-48); LYMPHOCYTES % (AUTO) 5.2 % (21.0-51.0); MEAN CORPUSCULAR HEMOGLOBIN 29.1 pg (27.0-33.0); MEAN CORPUSCULAR HGB CONC 33.2 g/dL (32.0-36.0); MEAN CORPUSCULAR VOLUME 87.6 fL (79-99); MONOCYTES % (AUTO) 6.1 % (3.0-13.0); NEUTROPHILS % (AUTO) 88.2 % (40.0-77.0); PLATELET COUNT (AUTO) 162 K/uL (130-400); RED BLOOD CELL COUNT(AUTO) 3.95 MIL/uL (4.00-5.50)
[2021-11-16 18:09] LABS: CREATININE 1.4 mg/dL (0.5-1.5); POTASSIUM 4.1 mmol/L (3.5-5.1)
[2021-11-16 18:15] LABS: ALBUMIN 3.3 g/dL (3.5-5.0); TOTAL PROTEIN, SERUM 7.5 g/dL (6.0-8.3)
[2021-11-16 20:19] LABS: APPEARANCE,URINE CLOUDY (CLEAR); BILIRUBIN,URINE NEGATIVE (NEGATIVE); COLOR,URINE YELLOW (YELLOW); GLUCOSE, URINE (UA) 100 mg/dL (NEGATIVE); KETONES,URINE 15 mg/dL (NEGATIVE); LEUKOCYTE ESTERASE ,URINE MODERATE (NEGATIVE); NITRATE,URINE NEGATIVE (NEGATIVE); OCCULT BLOOD,URINE TRACE-LYSED (NEGATIVE); PROTEIN,URINE TRACE mg/dL (NEGATIVE); UROBILINOGEN,URINE 0.2 mg/dL (0.2-1.0)
[2021-11-16 20:27] LABS: BACTERIA,URINE Moderate /HPF (None Seen); SQUAMOUS EPITHELIAL CELL,UR Rare /HPF (0-2); WBC,URINE 26-50 /HPF (0-1)
[2021-11-16 20:28] LABS: TRANSITIONAL EPI CELLS,URINE Rare /HPF (None Seen)
[2021-11-16] MEDS ORDERED: CEFTRIAXONE 1G VIAL IM ONE (21:00)
[2021-11-16] MEDS ORDERED: IOHEXOL-350 75 ML VIAL IV ONE (22:49)
[2021-11-16] MEDS ORDERED: ASPIRIN 81 MG EC TAB PO ONE (23:00)
[2021-11-16 23:47] LABS: THYROID STIMULATING HORMONE 0.56 uIU/mL (0.36-3.74)
[2021-11-16] MEDS: 0.9%NACL 1000ML 1,000 ML IV SCH (23:51)
[2021-11-17] MEDS ORDERED: ONDANSETRON 4MG INJ IV PRN (03:00)
[2021-11-17] MEDS: 0.9%NACL 1000ML 1,000 ML IV SCH ×4 (03:00→16:20)
[2021-11-17] MEDS: ZOSYN 3.375GM+NS 50ML 50 ML IV SCH ×2 (03:00→15:13)
[2021-11-17 07:19] LABS: HEMOGLOBIN A1C 8.9 % (4.0-6.0)
[2021-11-17] MEDS: INSULIN HUMULIN R 100 UNIT/ML 3ML SQ SCH ×4 (07:53→20:35)
[2021-11-17] MEDS: FAMOTIDINE 20MG TAB PO SCH (08:54)
[2021-11-17 09:01] LABS: AMPHET/METH SCREEN,URINE NEGATIVE (NEGATIVE); BARBITURATE SCREEN, URINE NEGATIVE (NEGATIVE); BENZODIAZEPINES SCREEN,URINE NEGATIVE (NEGATIVE); CANNABINOID SCREEN,URINE NEGATIVE (NEGATIVE); COCAINE SCREEN,URINE NEGATIVE (NEGATIVE); OPIATE SCREEN,URINE NEGATIVE (NEGATIVE); PHENCYCLIDINE SCREEN,URINE NEGATIVE (NEGATIVE)
[2021-11-17] MEDS ORDERED: PREDNISONE 5 MG TABLET PO SCH (10:00)
[2021-11-17 10:20] LABS: BASOPHILS % (AUTO) 0.1 % (0.0-5.0); EOSINOPHILS % (AUTO) 0.7 % (0.0-8.0); HEMATOCRIT 30.3 % (36-48); LYMPHOCYTES % (AUTO) 15.3 % (21.0-51.0); MEAN CORPUSCULAR HEMOGLOBIN 30.3 pg (27.0-33.0); MEAN CORPUSCULAR HGB CONC 35.6 g/dL (32.0-36.0); MEAN CORPUSCULAR VOLUME 84.9 fL (79-99); MONOCYTES % (AUTO) 9.6 % (3.0-13.0); NEUTROPHILS % (AUTO) 74.1 % (40.0-77.0); PLATELET COUNT (AUTO) 253 K/uL (130-400); RED BLOOD CELL COUNT(AUTO) 3.57 MIL/uL (4.00-5.50); RED CELL DISTRIBUTION WIDTH 13.2 % (11.0-15.5); WHITE BLOOD COUNT (AUTO) 8.5 K/uL (4.8-10.8)
[2021-11-17 10:31] LABS: ALBUMIN 2.9 g/dL (3.5-5.0); BILIRUBIN,TOTAL 0.4 mg/dL (0.2-1.0); CREATININE 1.2 mg/dL (0.5-1.5); POTASSIUM 3.4 mmol/L (3.5-5.1); TOTAL PROTEIN, SERUM 6.9 g/dL (6.0-8.3)
[2021-11-17 10:46] LABS: CRP QUANTITATIVE 156.4 mg/L (0.00-9.0)
[2021-11-17 11:25] LABS: ERYTHROCYTE SEDIMENTATION RATE 45 MM/HR (0-30)
[2021-11-17] MEDS ORDERED: LEVOFLOXACIN 500 MG TABLET PO SCH (12:30)
[2021-11-17] MEDS: LEVOFLOXACIN 500 MG TABLET PO SCH (13:27)
[2021-11-17] MEDS ORDERED: KCL 20 MEQ ERTAB PO ONE (13:30)
[2021-11-17] MEDS: TACROLIMUS 1 MG CAPSULE PO SCH (14:25)
[2021-11-17] MEDS: ACETAMINOPHEN 325 MG TAB PO PRN (14:32)
[2021-11-17] MEDS: MYCOPHENOLATE MOFETIL 250 MG CAPSULE PO SCH (14:38)
[2021-11-17 15:15] VITALS: BP 128/71
[2021-11-17 20:00] VITALS: BP 153/72
[2021-11-17] MEDS ORDERED: MYCOPHENOLATE MOFETIL 250 MG CAPSULE PO SCH (21:00)
[2021-11-18] VITALS: BP 152/77
[2021-11-18] MEDS ORDERED: TRAZODONE HCL 100 MG TABLET PO PRN (01:00)
[2021-11-18] MEDS: MYCOPHENOLATE MOFETIL 250 MG CAPSULE PO SCH ×2 (01:01→14:07)
[2021-11-18] MEDS: TRAZODONE HCL 100 MG TABLET ONE ×2 (01:02→01:10)
[2021-11-18] MEDS: ZOSYN 3.375GM+NS 50ML 50 ML IV SCH (03:06)
[2021-11-18 04:00] VITALS: BP 150/78
[2021-11-18 05:04] LABS: BASOPHILS % (AUTO) 0.3 % (0.0-5.0); EOSINOPHILS % (AUTO) 0.8 % (0.0-8.0); HEMATOCRIT 37.5 % (36-48); LYMPHOCYTES % (AUTO) 19.7 % (21.0-51.0); MEAN CORPUSCULAR HEMOGLOBIN 28.4 pg (27.0-33.0); MEAN CORPUSCULAR HGB CONC 32.3 g/dL (32.0-36.0); MONOCYTES % (AUTO) 8.3 % (3.0-13.0); NEUTROPHILS % (AUTO) 70.6 % (40.0-77.0); PLATELET COUNT (AUTO) 180 K/uL (130-400); RED BLOOD CELL COUNT(AUTO) 4.26 MIL/uL (4.00-5.50); RED CELL DISTRIBUTION WIDTH 13.1 % (11.0-15.5); WHITE BLOOD COUNT (AUTO) 6.2 K/uL (4.8-10.8)
[2021-11-18 05:29] LABS: CREATININE 1.2 mg/dL (0.5-1.5); MAGNESIUM 1.7 mg/dL (1.80-2.40); PHOSPHORUS 3.7 mg/dL (2.5-4.9); POTASSIUM 4.3 mmol/L (3.5-5.1)
[2021-11-18] MEDS: INSULIN HUMULIN R 100 UNIT/ML 3ML SQ SCH ×4 (05:56→22:05)
[2021-11-18 08:00] VITALS: BP 169/102
[2021-11-18] MEDS: LEVOFLOXACIN 500 MG TABLET PO SCH (09:10)
[2021-11-18] MEDS: FAMOTIDINE 20MG TAB PO SCH (09:11)
[2021-11-18] MEDS: TACROLIMUS 1 MG CAPSULE PO SCH ×2 (09:11→22:03)
[2021-11-18 10:55] VITALS: BP 152/73
[2021-11-18] MEDS: AMLODIPINE 5 MG TAB PO SCH (11:29)
[2021-11-18] MEDS: ACETAMINOPHEN 325 MG TAB PO PRN ×2 (15:19→22:13)
[2021-11-18 16:00] VITALS: BP 156/73
[2021-11-18] MEDS ORDERED: CYCL-309 PO (18:38)
[2021-11-18] MEDS ORDERED: ASPI-1114 PO (18:38)
[2021-11-18] MEDS ORDERED: GABA-529 PO (18:38)
[2021-11-18 20:00] VITALS: BP 138/76
[2021-11-19] VITALS: BP 165/82
[2021-11-19] MEDS: MYCOPHENOLATE MOFETIL 250 MG CAPSULE PO SCH ×2 (00:59→13:58)
[2021-11-19 04:00] VITALS: BP 143/68
[2021-11-19] MEDS: INSULIN HUMULIN R 100 UNIT/ML 3ML SQ SCH (06:17)
[2021-11-19 08:00] VITALS: BP 123/73
[2021-11-19] MEDS ORDERED: LEVO500T90 PO (08:35)
[2021-11-19] MEDS ORDERED: AMLO-257 PO (08:38)
[2021-11-19] MEDS ORDERED: AMLODIPINE 2.5 MG TAB PO SCH (09:00)
[2021-11-19] MEDS: AMLODIPINE 5 MG TAB PO SCH (09:31)
[2021-11-19] MEDS: LEVOFLOXACIN 500 MG TABLET PO SCH (09:31)
[2021-11-19] MEDS: TACROLIMUS 1 MG CAPSULE PO SCH (09:31)
[2021-11-19] MEDS: FAMOTIDINE 20MG TAB PO SCH (09:31)
[2021-11-19] MEDS: ACETAMINOPHEN 325 MG TAB PO PRN (10:57)
[2021-11-19 11:28] VITALS: BP 149/90
[2021-11-19 16:00] VITALS: BP 144/83
== END 2021-11-19 17:24 | disposition home or self-care (01) | DRG 690 ==
LOC: EDH 17:25 → EDHIP 11-17 02:48 → 3CH 11-17 14:58
PROVIDERS: ADMIT Internal Medicine; ATTEND Internal Medicine
DX: N39.0 Urinary tract infection, site not specified (principal); E87.1 Hypo-osmolality and hyponatremia; Z94.0 Kidney transplant status; Z20.822 Contact with and (suspected) exposure to COVID-19; E11.65 Type 2 diabetes mellitus with hyperglycemia; G89.29 Other chronic pain; M54.9 Dorsalgia, unspecified; D72.829 Elevated white blood cell count, unspecified; E78.00 Pure hypercholesterolemia, unspecified; B96.1 Klebsiella pneumoniae [K. pneumoniae] as the cause of diseases classified elsewhere; N12 Tubulo-interstitial nephritis, not specified as acute or chronic; I10 Essential (primary) hypertension
CPT/HCPCS: 36415; 70450; 70544; 70547; 70551; 80048; 80053; 80305; 81001; 82607; 82948; 83036; 83605; 83735; 84100; 84145; 84443; 84484; 85025; 85651; 86140; 87040; 87077; 87088; 87186; 87635; 87804; 93005; 93306; 93356; C9803; G0378; J0696; J1815; J2405; J2543; J7030; J7507; J7512; J7517; Q9967

== ENCOUNTER → 2025-05-12 | Outpatient (CLI) | payer MEDICARE ==
--- NOTE | 2025-05-13 02:58 | HMCIMG ---
EXAM: Mesenteric artery Doppler ultrasound CLINICAL HISTORY: Mesenteric ischemia. TECHNIQUE: Grayscale and spectral Doppler ultrasound evaluation of the abdominal aorta, celiac artery, and superior mesenteric artery was performed. COMPARISON: None provided. FINDINGS: AORTA: Peak systolic velocity in the abdominal aorta measures 117 cm/s. CELIAC ARTERY: The proximal celiac artery peak systolic velocity measures 308 cm/s. The mid celiac artery peak systolic velocity measures 285 cm/s. The distal celiac artery peak systolic velocity measures 412 cm/s. SUPERIOR MESENTERIC ARTERY: The proximal SMA peak systolic velocity measures 238 cm/s. The mid SMA peak systolic velocity measures 144 cm/s. The distal SMA peak systolic velocity measures 118 cm/s. IMPRESSION: 1. Markedly elevated celiac artery velocities measuring 308 cm/s proximally, 285 cm/s in the mid segment, and 412 cm/s distally. These Doppler values exceed the commonly accepted threshold (>709482 cm/s) for hemodynamically significant celiac artery stenosis, strongly suggesting high-grade stenosis, possibly due to atherosclerotic disease or median arcuate compression. 2. No Doppler evidence of high-grade superior mesenteric artery stenosis. 3. Normal peak systolic velocity in the abdominal aorta. /[place]
== END | disposition home or self-care (01) ==
LOC: RAH 07:17
PROVIDERS: ATTEND Internal Medicine
DX: I77.1 Stricture of artery (principal); R10.9 Unspecified abdominal pain; K55.9 Vascular disorder of intestine, unspecified
CPT/HCPCS: 93975

== ENCOUNTER → 2025-05-14 | Outpatient (CLI) | payer MEDICARE, MEDICAID ==
[~2025-05-14] MED LIST changes: +AMLO-257 PO; -AMLO2.5T4 PO; -ATOR40TA71 PO; -BISA5TAB12 PO; -CEPH500T PO; -CHOL200052 PO; -CHOL200074 PO; +DICY-20 PO; +DOCU240C25 PO; +FAMO20TA8 PO; +INSU100V54 SQ; +LEVO-70 PO; +MAGN500C4 PO; +METF-444 PO; +MIRA25TA PO; -PRED5TAB2 PO; +PRED5TAB44 PO; -PSYL0.4C2 PO; +ROSU10TA98 PO; -SITA100T12 PO; +TACR1CAP10 PO; -TACR1CAP18 PO; -TRAZ-185 PO; +TRAZ-187 PO
--- NOTE | 2025-05-15 06:26 | HMCIMG ---
Gastric Emptying Scan. EXAM: Nuclear Medicine Gastric Emptying Scan. INDICATION: Abdominal pain, nausea, vomiting. REFERENCE EXAMINATION: None. TECHNIQUE: 1.5 mCi of Tc99m sulfur colloid with 02 scrambled eggs. FINDINGS: Transit of radiopharmaceutical is seen from the stomach into the small bowel. 50% gastric emptying not achieved during the period of study. IMPRESSION: Scintigraphic findings suggest gastroparesis. /[place]
== END ==
LOC: RAH 06:59
PROVIDERS: ATTEND Internal Medicine
DX: R11.2 Nausea with vomiting, unspecified (principal)
CPT/HCPCS: 78264; A9541